=== PATIENT | male | born 1970 | race Caucasian/White ===

== ENCOUNTER 2024-01-03 07:45 | Inpatient (IN) | payer OTHER, SELFPAY ==
[2024-01-03] VITALS (27 sets, daily range): BP systolic 77–150; BP diastolic 69–106; BMI 29.0
--- NOTE | 2024-01-03 04:15 | ED.GENMED ---
History of Present Illness
General
Chief Complaint: Chest Pain
Source: patient
Exam Limitations: none
Time Seen by Provider: 01/03/24 04:15
Nursing documentation reviewed up to this point in time: agreed with
Travel History
Have you had any contact with someone who has COVID-19?: No
Do you have any symptoms of coronavirus? Fever > 100 degrees, chills, cough, shortness of breath, sore throat, loss of taste or smell, muscle aches, or headache?: No
History of Present Illness
History of Present Illness:
Pleasant 53-year-old male that presents with chest pain. He states that he is been having chest pain for the last 5 days. He reports its intermittent in nature and typically not lasting longer than 5 minutes. Tonight he was sleeping and felt
prolonged chest pain. He states that it lasted about 55 minutes. He also noticed that he was getting clammy so he drove himself to the hospital. Patient reports no shortness of breath during these episodes. Has not been sick. Denies fever,
chills, nausea or vomiting. Patient has hyperlipidemia. He is on a statin. He does smoke cigars on occasion but has had none recently. He does drink alcohol nightly. 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
stress lately. He denies previous cardiac history though he states his dad had triple bypass at age 84. Denies headache. Reports no other symptoms at this time.
Vital signs are stable. Patient not hypoxic
Nursing note reviewed. I agree with nursing documentation up to this point in time.
Home Meds and allergies reviewed.
NUMBER AND COMPLEXITY OF PROBLEMS ADDRESSED AT THE ENCOUNTER
� Chronic conditions affecting care: Hyperlipidemia
� Acute Exacerbation and/or Progression of Chronic Illness: None
� Differential Diagnosis includes: ACS, musculoskeletal
AMOUNT AND/OR COMPLEXITY OF DATA TO BE REVIEWED AND ANALYZED
I performed an independent evaluation of the following and my interpretation is:
EKG: Initial EKG shows sinus tachycardia rate of 102 with elevations in V3 through V4 consistent with anterior infarct. Q waves are present.
Repeat EKG shows ST elevations anteriorly consistent with acute STEMI.
CT:
X-rays:
Ultrasound:
Laboratory Studies: Troponin is 2.270
Other:
Review of other/old records:
Clinical information was obtained by an independent historian:
Prescriptions/Medications Considered but not given:
Further testing considered but not performed:
RISK OF COMPLICATIONS AND/OR MORBIDITY OR MORTALITY OF PATIENT MANAGEMENT
Social determinants of health affecting care: Good Social Support
Discussion with other providers:
Escalation of care including admission/observation vs risk of discharge considered: STEMI alert called after EKG changed.
CRITICAL CARE NOTE:
Critical care statement: A total of 35 minutes of critical care time was provided for this patient. This time is separate from time utilized to perform the aforementioned documented procedures. Aggregate critical care time includes only time
during which I was engaged in work directly related to the patient's care, as described above, whether at the bedside or elsewhere in the Emergency Department.
Total Time (exclusive of procedures):35
Update:
Past History
Past History
ED Past Medical History: Hypercholesterolemia
ED Past Surgical History: None
Social History
Tobacco: Non-smoker
Alcohol: Other (Drinks a few times per week)
Drug: None
Personal:
Living: with family
Review of Systems
Review of Systems
Allergies reviewed?: Yes
All Other Systems: ROS reviewed and negative except as documented in HPI and ROS
Constitutional: Reports no symptoms
EENT: Reports no symptoms
Respiratory: Reports no symptoms
Cardiac: Reports chest pain and palpitations; Denies syncope
ABD/GI: Reports no symptoms
: Reports no symptoms
Musculoskeletal: Reports no symptoms
Skin: Reports no symptoms
Neurological: Reports no symptoms
Endocrine: Reports no symptoms
Hematologic/Lymphatic: Reports no symptoms
Psychiatric: Reports no symptoms
Phy Exam
General Physical Exam
General Presentation: well appearing and no apparent distress
General Skin: warm and dry
General Habitus: normal
General Mental: alert
General Hydration: appears well hydrated
ENT Exam
ENT Exam: EOMI, pharynx normal, neck supple and normocephalic
Eye Exam
Eye Exam: PERRL, cornea clear and conjunctiva normal
Cardiovascular Exam
Cardiovascular Exam: regular rate/rhythm, no edema, no murmur and normal peripheral pulses
Pulmonary Exam
Pulmonary Exam: lungs clear, no respiratory distress, no rales, no crackles, no rhonchi, no stridor, no wheezing and no cough
Gastrointestinal Exam
Gastrointestinal Exam: normal bowel sounds, non tender, soft, no organomegaly, no pulsatile mass and non distended
Neurological Exam
Neurological Exam: alert, oriented x3, no motor deficits and speech normal
Musculoskeletal Exam
Musculoskeletal Exam: full ROM and no edema
Skin Exam
Skin Exam: normal color, warm/dry, no rash and no petechia
Psychiatric Exam
Psychiatric Exam: normal mood/affect
Scores
Heart Score for Chest Pain Patients
STEMI patient?: Yes
Course
Orders/Labs/Results
Orders:
Orders
01/03/24
Electrocardiogram (*1) Stat
Comment: ALREADY DONE
01/03/24 03:52
Electrocardiogram (*1) Urgent
Reason for Study: Chest Pain
Cardiac Monitoring- Treatment ONCE
EKG- Treatment ONCE
IV Insert/Care/Rem.- Treatment PRN
O2 Therapy [RESP] Urgent
Titrate/Wean O2 to maintain O2 sat greater than (%): 90
Special Instructions: Maintain sats >/=90%
Pulse Ox/spot Check [RESP] Urgent
Quantity: 1
Special Instructions: ON ROOM AIR
01/03/24 04:09
Complete Blood Count/With Diff Urgent
Comprehensive Metabolic Panel Urgent
Troponin I Urgent
01/03/24 04:17
Aspirin 325 mg PO NOW STA
01/03/24 05:00
Electrocardiogram (*1) Urgent
Reason for Study: Chest Pain
EKG- Treatment ONCE
01/03/24 05:17
PT/INR [Prothrombin Time] Urgent
01/03/24 05:32
Verapamil Injectable [Isoptin/Verapamil Injection] 5 mg .ROUTE .STK-MED ONE
01/03/24 05:33
Fentanyl Citrate/Pf [Sublimaze] 100 mcg .ROUTE .STK-MED ONE
Heparin 10,000 units .ROUTE .STK-MED ONE
Heparin 1000 Units/500 ml [Heparin] 1,000 units in 500 ml .ROUTE .STK-MED
Heparin Sodium,Porcine/Ns/Pf [Heparin 2000 Units/1000 ml] 2,000 unit in 1,000 ml .ROUTE .STK-MED
Lidocaine HCl/Pf [Xylocaine-Mpf 1% Vial] 100 mg .ROUTE .STK-MED ONE
Midazolam HCl [Versed] 2 mg .ROUTE .STK-MED ONE
Nitroglycerin [Tridil] 1,500 mcg .ROUTE .STK-MED ONE
01/03/24 05:57
Heparin 5,000 units .ROUTE .STK-MED ONE
Ticagrelor [Brilinta] 180 mg .ROUTE .STK-MED ONE
01/03/24 Breakfast
Cholesterol Lowering
At Your Request: Full Participation
Does patient need a safe tray?: No
Cholesterol Lowering: Sodium, 2 Gram
01/03/24 06:21
Adenosine [Adenocard] 6 mg .ROUTE .STK-MED ONE
01/03/24 07:16
Admit Patient As Directed
Co-Sign Provider:
Level of Care: Inpatient admission
Assign to:: IVU
Physician / Group: dca
Diagnosis: STEMI
Reason for Hospitalization: STEMI
Expected length of stay greater than two midnights?: Yes
ELOS- Estimated Length of Stay in days: 3
I certify the patient meets the requirements for IP care: Yes
Code Status As Directed
Resuscitation Status: Full Code
CARDIAC REHAB CONSULT Routine
Co-Sign Provider:
Type of Cardiac Rehab Referral: Outpatient
Diagnosis: STEMI
Date of Diagnosis/Surgery: 01/03/24
Referring Provider: Gage Suazo
Acetaminophen [Tylenol] 650 mg PO Q4HPRN PRN
Activity As Directed
Activity Level: Out of Bed- Chair
Comment: bed/chair rest for 2 hours then out of bed ad caryn
Plant Operator/Shift Supervisor Procedure As Directed
Cardiac Cath Procedure: percutaneous coronary intervention
Intake/ Output As Directed
Frequency: Per unit guidelines
Notify MD As Directed
Notify physician if: immediately for chest pain or bleeding from access site(s)
Radial Artery Hemostasis Method As Directed
Instructions:: 3 mL out at 2 hour posts placement of band
3 mL out at 2 1/2 hours post placement of band
3 mL out at 3 hours post placement of band
Off at 3 1/2 hours post placement of band
If any oozing or hemotoma occurs:: re-inflate band and call provider
Site Checks As Directed
Check access site for bleeding/hematoma: Yes
Comment: on arrival, Q15min x4, Q30min x2, Q1 hr x2, Q2 hr x2, Q4 hr or per
protocol
Vascular Checks As Directed
Location: distal to access site - pulse check
Frequency: Other
Comment: on arrival, Q15min x4, Q30min x2, Q1 hr x2, Q2 hr x2, Q4 hr or per protocol
Vital Signs As Directed
Frequency: Other
Additional Instructions:: on arrival, Q15min x4, Q30min x2, Q1 hr x2, Q2 hr x2, then Q4 hr or per unit
protocol
01/03/24 07:17
DX Deep Vein Thrombosis Video Routine
01/03/24 07:30
0.9% Sodium Chloride 1000 ml [Nss] 1,000 ml IV PER PROTOCOL
Infusion rate in mL/kg/hr:: 1.5
Infusion rate in mL/hr:: 130
Duration of infusion (hours):: 5
01/03/24 08:00
Flush (0.9% Sodium Chloride) [Flush (Nss)] See Dose Instructions IV PER PROTOCOL
Metoprolol Xl [Toprol Xl] 25 mg PO DAILY
01/03/24 12:41
Troponin I Q6H
01/03/24 17:54
Troponin I Q6H
01/03/24 18:00
Atorvastatin [Lipitor] 80 mg PO QPM
Enoxaparin Sodium [Lovenox] 40 mg SC QPM
01/03/24 20:00
Ticagrelor [Brilinta] 90 mg PO BID
01/04/24 04:33
Basic Metabolic Panel IN AM
Cardiovascular Evaluation IN AM
Complete Blood Count/No Diff IN AM
Glycohemoglobin (HgbA1c) Routine
Troponin I Q6H
01/04/24 06:00
Electrocardiogram (*1) IN AM
Reason for Study: Other
Other Reason for Exam: s/p intervention
Comment: dca
01/04/24 08:00
Aspirin Chewable [Low Strength Aspirin] 81 mg PO DAILY
01/05/24 06:00
Basic Metabolic Panel IN AM
Complete Blood Count/No Diff IN AM
01/06/24 06:00
Basic Metabolic Panel IN AM
Complete Blood Count/No Diff IN AM
Abnormal Lab Results
01/03/24 01/03/24 01/03/24
04:09 06:02 06:15
MCH 31.2 H pg
(27.0-31.0)
Absolute Lymphs (auto) 3.7 H 10^3/uL
(1.2-3.4)
Absolute Monos (auto) 0.7 H 10^3/uL
(0.1-0.6)
Glucose 137 H mg/dl
(70-99)
AST 63 H U/L
(17-59)
Troponin I 2.270 H* ng/ml
POC ACT Low Range 253 H Seconds > 397 H Seconds
(116-155) (116-155)
01/03/24
06:50
MCH
Absolute Lymphs (auto)
Absolute Monos (auto)
Glucose
AST
Troponin I
POC ACT Low Range 248 H Seconds
(116-155)
01/03/24 04:09
01/03/24 04:09
Vital Signs
Initial and Last Documented VS:
Initial Vital Signs
Temp Pulse Resp BP Pulse Ox
98.4 F 104 18 150/106 97
01/03/24 03:55 01/03/24 03:55 01/03/24 03:55 01/03/24 03:55 01/03/24 03:55
Last Documented Vital Signs
Temp Pulse Resp BP Pulse Ox
99.6 F 95 16 87/67 96
01/04/24 19:37 01/04/24 20:11 01/04/24 19:37 01/04/24 20:11 01/04/24 19:37
*Critical Care Note
Total Time (30-74mins, 75-104mins- exclusive of procedures): 30 (Critical care statement: A total of 30 minutes of critical care time was provided for this patient. This time is separate from time utilized to perform the aforementioned documented
procedures. Aggregate critical care time includes only time during which I was engaged in work directl)
ED Attending Note
-
Portions of this chart may have been created with voice recognition software.� Occasional wrong word or��sound alike� substitutions may have occurred due to the inherent limitations of voice recognition software.
Discharge Plan
Departure
Patient Disposition: SENIOR MATERIALS ANALYST
Date of Disposition: 01/03/24
Time of Disposition: 05:04
Admit to: [facility]
Presentation/result/management discussed w/ accepting MD/DO: Dr Suazo
Condition: Good
Discharge Problem:
ST elevation (STEMI) myocardial infarction
Interventions
Interventions:
*Risk Screen - Suicide Last Done: 01/03/24 03:55
*General Assessment Last Done: 01/03/24 03:55
*Neglect/Abuse Screening Last Done: 01/03/24 03:55
ED- Fall Risk Assessment Last Done: 01/03/24 03:55
*ED COVID-19 Vaccine History Last Done: 01/03/24 03:55
*Nursing Disposition Last Done: 01/03/24 06:00
ED- Cardiac Assessment Last Done: 01/03/24 04:23
Discharge Date and Time
Discharge Date/Time: 01/03/24 06:01
[2024-01-03 04:18] LABS: % Basophils 0.5 % (0-2); % Eosinophils 3.4 % (0-6); % Immature Granulocytes 0.3 % (0-0.5); % Monocytes 6.8 % (1.7-9.3); Absolute Basophils 0.1 10^3/uL (0-0.2); Absolute Eosinophils 0.4 10^3/uL (0-0.7); Absolute Lymphocytes 3.7 10^3/uL (1.2-3.4); Absolute Monocytes 0.7 10^3/uL (0.1-0.6); Absolute Neutrophils 5.5 10^3/uL (1.4-6.5); Hematocrit 45.3 % (39.0-52.0); Hemoglobin 16.3 g/dL (13.0-18.0); Mean Corpuscular Hgb 31.2 pg (27.0-31.0); Mean Corpuscular Volume 86.6 fL (80.0-94.0); Mean Platelet Volume 8.7 fL (7.4-10.4); Nucleated Red Blood Cells % 0 % (-); Platelet Count 211 10^3/uL (130-400); Red Blood Cell Count 5.23 10^6/uL (4.70-6.10); Red Cell Dist. Width 12.1 % (11.5-14.5); White Blood Cell Count 10.4 10^3/uL (4.8-10.8)
[2024-01-03] MEDS: ASPIRIN 325 MG PO (04:26)
[2024-01-03 04:34] LABS: ALT (SGPT) 42 U/L (0-50); AST (SGOT) 63 U/L (17-59); Albumin 4.6 g/dl (3.5-5.0); Alkaline Phosphatase 73 U/L (38-126); Blood Urea Nitrogen 15 mg/dl (9-20); Calcium 9.3 mg/dl (8.4-10.2); Carbon Dioxide 23 mmol/L (22-30); Chloride 106 mmol/L (98-107); Glucose 137 mg/dl (70-99); Potassium 3.8 mmol/L (3.5-5.1); Sodium 138 mmol/L (135-145); Total Bilirubin 0.8 mg/dl (0.2-1.3); Total Protein 7.3 g/dl (6.3-8.2); eGFR > 60.00
[2024-01-03 05:44] LABS: INR 0.91; PT 12.3 Sec (11.4-14.6)
[2024-01-03 05:59] LABS: ACT-LR - POC 144 Seconds (116-155)
[2024-01-03 06:09] LABS: ACT-LR - POC 253 Seconds (116-155)
[2024-01-03 06:54] LABS: ACT-LR - POC 248 Seconds (116-155)
[2024-01-03] MEDS: TOPROL XL 25 MG PO (07:31)
[2024-01-03] MEDS: TYLENOL 650 MG PO (07:31)
[2024-01-03 08:01] LABS: ACT-LR - POC > 397 Seconds (116-155)
--- NOTE | 2024-01-03 08:41 | ITS.CL.CATH ---
Bus Driver Supervisor - Catheterization
Cardiac Catheterization
Procedure Report:
LEFT HEART CATH AND CORONARY INTERVENTION
Date of Procedure: January 03, 2024
Referring: [facility] Emergency Department
PROCEDURES:
1. Left heart catheterization with coronary and single-plane left ventriculography
2. Successful stenting of the proximal to mid LAD with a 3.5 x 38 mm Xience stent that was postdilated with a 3.5 mm noncompliant balloon in the mid to distal portion and a 4.0 x 15 mm noncompliant balloon proximally.
3. Intravascular ultrasound: Intravascular ultrasound was performed prior to post dilation of the stent
INDICATION: This is a 53-year-old gentleman with no prior cardiovascular history who presented to [facility] with a 5-day history of waxing and waning substernal chest pressure. Symptoms would typically resolve within 5 to 10 minutes. His
initial electrocardiogram patient had 355 was notable for anteroseptal Q waves with no gross ST elevation and he was chest pain-free. He was started on medical therapy but developed recurring chest tightness and repeat electrocardiogram was now
notable for marked anterior ST segment elevation in leads V1 through V4 at which time a STEMI alert was activated by the emergency department at approximately 5 AM.
ACCESS: Right radial artery, 6 Egyptian sheath
HEMODYNAMICS (mmHg):
AO (s/d, m) : 116/87, 102
LV (s/d) : 120/17
LVEDP : 33
CORONARY FINDINGS
Dominance: Right
LEFT MAIN: Normal
LEFT ANTERIOR DESCENDING: The LAD arises normally from the left main and runs in the anterior interventricular groove. There is an eccentric high-grade proximal LAD stenosis with angiographic appearance of a ruptured plaque in the proximal LAD.
There is a moderate caliber diagonal branch that arises just beyond the ruptured plaque in the proximal LAD. The mid LAD beyond the diagonal branch has tandem 30-40% stenosis. The mid to distal LAD has minor irregularities.
RAMUS: Small caliber widely patent vessel
CIRCUMFLEX: The circumflex is a medium caliber vessel supplying 2 sizable obtuse marginal branches with minor irregularities.
RIGHT CORONARY: The right coronary artery is a large-caliber dominant vessel with tandem proximal 30-40% stenoses. Luminal irregularities are noted throughout the mid to distal RCA. The PDA is large and widely patent. The posterolateral branch is
a moderate caliber vessel is widely patent
VENTRICULOGRAPHY: Left ventriculography is performed in CALABRESE projection. The digital single-plane left ventricular ejection fraction is visually estimated at 30-35% with extensive anterolateral and distal anterior/apical hypokinesis
ANGIOPLASTY PROCEDURE DETAIL: Upon review of the diagnostic catheterization the decision was made to proceed with percutaneous revascularization of the high-grade proximal LAD stenosis. The patient received heparin and a 180 mg loading dose of
ticagrelor in the emergency department. The ACT was followed throughout the procedure and maintained within therapeutic limits. The origin of the left main was cannulated with a 6 Egyptian EBU 3.75 guiding catheter and a BMW guidewire across the
high-grade proximal LAD stenosis and was advanced to the distal vessel. Direct stenting was performed with placement of a 3.5 x 38 mm Xience stent that was implanted at nominal pressures. The patient developed transient no reflow following stent
deployment. Intracoronary adenosine was repeatedly administered with gradual resolution in the no reflow. Intravascular ultrasound was then performed with the Sysomos IVUS catheter and the decision was made to post dilate the mid to distal
portion of the stent with a 3.5 mm NC balloon that was inflated between 18-20 atmospheres. The proximal to mid portion of the stent was post dilated with a 4.0 mm NC balloon. Transient no reflow developed and responded again to intracoronary
adenosine
RADIATION SUMMARY: Fluoro Time (min): 12.6, Dose (mGy): 1311, DAP (Gy.cm2) : 109.3
CONCLUSIONS
1. Acute anterior wall myocardial infarction with waxing and waning chest pain which became persistent and associated with marked anterior ST segment elevation. Angiography was notable for a high-grade proximal LAD stenosis that was successfully
stented with a 3.5 x 38 mm Xience stent that was postdilated using ultrasound guidance with a 3.5 mm noncompliant balloon in the mid and distal portion of the stent and a 4.0 mm noncompliant balloon in the proximal to midportion of the stent
2. Moderate left ventricular systolic dysfunction with an estimated ejection fraction of 30-35%. Extensive anterolateral and distal anterior/apical hypokinesis
RECOMMENDATIONS
1. Uninterrupted dual antiplatelet therapy for 12 months
2. High intensity statin therapy
3. Guideline directed medical therapy for LV dysfunction
4. Check echocardiogram
5. Serial troponin and ECG.
6. Further management decisions to be made based on hospital course.
Copy to: Dr. Gage Suazo
[2024-01-03] MEDS: NSS 1000 IV (08:47)
--- NOTE | 2024-01-03 09:04 | HPS.HSE ---
Family Physician
-
Family Physician: JOVANI Adame
Chief Complaint
-
Anterior STEMI
History of Present Illness
53 yo WM h/o mixed hyperlipidemia on atorvastatin 20mg, who has been having intermittent chest pain for the last 5 days. At 3am he was awoken with the chest pain which continued to progress with associated diaphoresis and he drove himself to the ""hospital. EKG with anteroseptal Q waves and anterior ST elevations. STEMI alert activated, He was given ASA, Heparin, Brilinta and brought urgently to the cath lab manager.
Medical History
Past Medical History
Past Medical History: Reports Hypercholesterolemia
Past Surgical History: Reports None
Social History
Tobacco: Smoker (occasional cigars on weekends)
Alcohol: Occasional (weekends)
Drug: None
Personal:
Living: With Family
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)
Family History
Family History: CAD (Father CABG @84, HLD, Mother hemorrhagic CVA @77)
Allergies / Home Medications
Allergies reflects when Allergies were last updated in [employer].
Home Medications with original date entered in [employer]
Allergy/Medication List:
Allergies
Allergy/AdvReac Type Severity Reaction Status Date / Time
No Known Allergies Allergy Unverified 01/03/24 03:55
Medication Instructions Recorded Confirmed Type
atorvastatin 20 mg tablet 20 mg PO DAILY 01/03/24 01/03/24 History
Review of Systems
-
A 12 point ROS was completed and negative except as noted: Yes
Cardiac: Reports Chest Pain
Physical Exam
Vital Signs
Vital Signs
Temp Pulse Resp BP Pulse Ox
98 F 88 20 115/103 97
01/03/24 07:35 01/03/24 08:45 01/03/24 07:35 01/03/24 08:30 01/03/24 08:45
Physical Exam
General: Pain (deferred as prepped and draped on cath lab manager table)
Laboratory Results
-
01/03/24 04:09
01/03/24 04:09
Laboratory Results
PT 12.3 Sec (11.4-14.6) 01/03/24 05:17
INR 0.91 01/03/24 05:17
Total Bilirubin 0.8 mg/dl (0.2-1.3) 01/03/24 04:09
AST 63 U/L (17-59) H 01/03/24 04:09
ALT 42 U/L (0-50) 01/03/24 04:09
Alkaline Phosphatase 73 U/L (38-126) 01/03/24 04:09
Troponin I 2.270 ng/ml H* 01/03/24 04:09
Data Reviewed
-
Medical Tests (Nuc Med, Echo, EKG etc): Report Reviewed by me
Impression/Plan
-
PCP: JOVANI Adame
IMPRESSION:
late presentation anterior STEMI first troponin 2.27
Mixed Hyperlipidemia
Impaired fasting glucose
Vitamin B deficiency
Smoker - Cigars
PLAN:
Admit IVU post cath, PCI LAD
Rad band per protocol
serial troponin to peak
Echo today
DAPT ASA/Brilinta (CM to eval cost)
Will initiate BB, add ACEi/ARB after Echo, will trend bp
Check CVE, last LDL 12/14 97, increase atorvastatin 80mg daily
Elevated blood glucose - Check A1c, was 5.5 1 yr ago
Cardiac rehab c/s
f/u DCA at d/c
continue to monitor on tele 48 hour
--- NOTE | 2024-01-03 10:51 | CARDSERVLU ---
Echocardiogram with Lumason completed after protocol screening completed. Allergies verified.
Patent IV site: ___left FA__
IV site flushed with 0.9% NaCl pre and post administration.
Diluted bolus method utilized to enhance visualization of ventricular burks.
Total volume given: ___5.0_ mL
Patient tolerated all procedures well without complications.
--- NOTE | 2024-01-03 12:39 | CM ---
spoke to pt in room, he is prev indep, lives with his in a 2 story home with no steps to enter. he denies any dc planning needs or dme's. plan is for dc to home when medically stable.
--- NOTE | 2024-01-03 15:09 | CM ---
dorothea cardona at [facility]- his copay is $25/month, i put the $5 copay card in his red dc folder. they have it in stock
--- NOTE | 2024-01-03 16:23 | W.PN.UPDATE ---
Update Note
Progress Note Update
PCP: Steff Garcia
Research Physicist: None prior to admission
Impression:
Late presentation anterior STEMI
CAD
s/p PCI to LAD 01/03/2024
HLD
Impaired fasting glucose
Vitamin B deficiency
Smoker - Cigars
Echo 01/03/2024: Study completed, report pending
Plan:
-Presented with chest pain that had been progressively worsening for the past 5 days.
-Initial EKG with anteroseptal Q waves and anterior ST elevations.
-Given heparin and loaded with aspirin and Brilinta in ER.
-Underwent PCI of LAD. Official report pending. Seen this afternoon and feeling well. No chest pain. Resting without complaints.
-Continue DAPT with aspirin and Brilinta.
-Troponin up to 115.0. Continue to trend to peak.
-Echo completed, report pending.
-Continue medical therapy with Toprol for now. Consider addition of COSTA/ARB as BP allows.
-Continue atorvastatin 80mg daily. Dose increased this admission.
-Check CVE, A1c in AM.
-Cardiac rehab consult.
-Follow on telemetry.
HPI:53 yo WM h/o mixed hyperlipidemia on atorvastatin 20mg, who has been having intermittent chest pain for the last 5 days. At 3am he was awoken with the chest pain which continued to progress with associated diaphoresis and he drove himself to the ""hospital. EKG with anteroseptal Q waves and anterior ST elevations. STEMI alert activated, He was given ASA, Heparin, Brilinta and brought urgently to the director of cardiac cath lab.
[2024-01-03] MEDS: LOVENOX 40 MG SC (18:02)
[2024-01-03] MEDS: LIPITOR 80 MG PO (18:02)
--- NOTE | 2024-01-03 18:33 | PTCARENOTE ---
Pt with STEMI received @0700 post cardiac cath and stent placed via right radial artery. Radial band removed per protocol, no bleeding or hematoma noted. Pt reported 5/10 vague chest discomfort and headache post procedure and was given tylenol. Pt
reported that his discomfort has improved throughout the day. Telemetry shows sinus rhythm with some PVC's, rare triplets and couplets. Troponin level trending up, at 115 now, aware. ECHO done at bedside. Pt in some denial that he has had
an ME, reassurance and information given.
[2024-01-03] MEDS: BRILINTA 90 MG PO (19:49)
[2024-01-04] VITALS (8 sets, daily range): BP systolic 85–97; BP diastolic 64–83
[2024-01-04 05:25] LABS: Hematocrit 40.8 % (39.0-52.0); Hemoglobin 14.5 g/dL (13.0-18.0); Mean Corp Hgb Conc. 35.5 g/dL (33.0-37.0); Mean Corpuscular Hgb 31.2 pg (27.0-31.0); Mean Corpuscular Volume 87.7 fL (80.0-94.0); Mean Platelet Volume 9.3 fL (7.4-10.4); Platelet Count 198 10^3/uL (130-400); Red Blood Cell Count 4.65 10^6/uL (4.70-6.10); Red Cell Dist. Width 12.3 % (11.5-14.5)
[2024-01-04 05:42] LABS: Blood Urea Nitrogen 11 mg/dl (9-20); Calcium 8.6 mg/dl (8.4-10.2); Carbon Dioxide 23 mmol/L (22-30); Chloride 104 mmol/L (98-107); Estimated Creatinine Clearance 90 ml/min; Glucose 97 mg/dl (70-99); HDL Cholesterol 37 mg/dl; LDL Cholesterol, Calculated 65 mg/dl; Potassium 3.9 mmol/L (3.5-5.1); Sodium 134 mmol/L (135-145); Total Cholesterol 137 mg/dl (50-199); Triglyceride 178 mg/dl (10-149); Very Low Density Lipoprotein 35 mg/dl (0-30); eGFR > 60.00
[2024-01-04] MEDS: TOPROL XL 25 MG PO (08:15)
[2024-01-04] MEDS: LOW STRENGTH ASPIRIN 81 MG PO (08:15)
[2024-01-04] MEDS: BRILINTA 90 MG PO ×2 (08:17→20:10)
--- NOTE | 2024-01-04 09:03 | PTCARENOTE ---
Assumed care of pt from night RN. Pt received awake and alert, Ox3. VSS, CM shows NSR 80's with POX 96% on RA. Right radial site remains CDI with good CMS throughout extremity. He denies any pain or discomfort. Ambulating in halls frequently.
[2024-01-04 09:31] LABS: Glycohemoglobin (HgbA1c) 5.5 % (4.0-5.6)
--- NOTE | 2024-01-04 11:01 | W.PN.CARDCBS ---
Addendum entered and electronically signed by Emory Rodriguez MD 01/04/24 12:37:
I saw and examined the patient.
The Abrasives Sales Representative's note was reviewed and I agree with the note.
Comment: Briefly, 53-year-old man with past medical history of hyperlipidemia who presented with anterior STEMI and underwent drug-eluting stent to the LAD on 01/03/2024
It sounds like he had stuttering chest pain throughout the week and this maybe a late presentation
On transthoracic echocardiogram LV function was severely reduced with EF 25% with LAD territory akinesis
Troponin peaked at 115
No evidence of decompensated heart failure based on history or physical exam
Telemetry reviewed and brief episode of nonsustained VT was seen
Unfortunately blood pressure is marginal and therefore he is unlikely to tolerate much in the way of guideline directed medical therapy�will continue low-dose metoprolol and attempt to add low-dose losartan with hold parameters
Explained the importance of dual antiplatelet therapy x 1 year
Increase atorvastatin dose
Cardiac rehab referral
Original Note:
Today's Communication / Plan
-
Continue DAPT
Monitor on telemetry
Continue toprol
Attempt to add low dose losartan
Impression / Plan
-
PCP: Steff Garcia
Mushroom Cultivator: None prior to admission
Impression:
Late presentation anterior STEMI
CAD
s/p PCI to LAD 01/03/2024
Ischemic cardiomyopathy, EF 25%
HLD
Impaired fasting glucose
Vitamin B deficiency
Smoker - Cigars
Echo 01/03/2024: EF 25%, mid anteroseptal, mid septal, mid anterior, mid lateral, and apical akinesis, stage I diastolic dysfunction
Plan:
-Presented with chest pain that had been progressively worsening for the past 5 days.
-Initial EKG with anteroseptal Q waves and anterior ST elevations.
-Underwent PCI of LAD 01/03/2024. Seen this AM and doing well. No further chest pain. Ambulating around the unit without difficulty.
-Continue DAPT with aspirin and Brilinta.
-Troponin peaked at 115.0, trending down thereafter.
-Echo with EF 25%. Will continue Toprol 25mg daily for now and will attempt to start low dose losartan with hold parameters.
-Uptitration of medical therapy limited by hypotension, however patient is asymptomatic.
-Continue atorvastatin 80mg daily. Dose increased this admission. LDL 65
-Hgb A1c 5.5%
-Eventual cardiac rehab
HPI:53 yo WM h/o mixed hyperlipidemia on atorvastatin 20mg, who has been having intermittent chest pain for the last 5 days. At 3am he was awoken with the chest pain which continued to progress with associated diaphoresis and he drove himself to the ""hospital. EKG with anteroseptal Q waves and anterior ST elevations. STEMI alert activated, He was given ASA, Heparin, Brilinta and brought urgently to the medical laboratory assistant.
Progress Note - Mushroom Cultivator
Subjective
Date of Service: January 04, 2024
No complaints. Feeling well with no chest pain or dizziness.
Objective
Labs:
01/04/24 04:33
01/04/24 04:33
Labs
Hgb 14.5 g/dL (13.0-18.0) 01/04/24 04:33
Hct 40.8 % (39.0-52.0) 01/04/24 04:33
Plt Count 198 10^3/uL (130-400) 01/04/24 04:33
PT 12.3 Sec (11.4-14.6) 01/03/24 05:17
INR 0.91 01/03/24 05:17
Sodium 134 mmol/L (135-145) L 01/04/24 04:33
Potassium 3.9 mmol/L (3.5-5.1) 01/04/24 04:33
BUN 11 mg/dl (9-20) 01/04/24 04:33
Creatinine 0.9 mg/dL (0.7-1.3) 01/04/24 04:33
Glucose 97 mg/dl (70-99) 01/04/24 04:33
Troponins
01/03/24 01/03/24 01/03/24
04:09 12:41 17:54
Troponin I 2.270 H* 115.000 H* 109.000 H*
01/04/24
04:33
Troponin I 65.000 H*
Vital Signs and I&O:
Vital Signs
Temp Pulse Resp BP Pulse Ox
98.1 F 90 16 96/76 97
01/04/24 07:25 01/04/24 07:30 01/04/24 07:25 01/04/24 07:25 01/04/24 08:57
Vital Signs
Temp Pulse Resp BP Pulse Ox
98.1 F 90 16 96/76 97
01/04/24 07:25 01/04/24 07:30 01/04/24 07:25 01/04/24 07:25 01/04/24 08:57
Intake & Output
01/02/24 01/03/24 01/04/24 01/05/24
06:59 06:59 06:59 06:59
Intake Total 770 / 770
Balance 770 / 770
Physical Exam
Physical Exam
GEN: No distress, awake, alert, oriented x3
HEENT: supple, anicteric, mmm
LUNGS: CTA b/l, no wheezes/rales
CV: Reg, S1/S2, no murmur
EXT: No clubbing, cyanosis, or edema
NEURO: Gross non-focal
SKIN: Warm, dry, no rash
[2024-01-04] MEDS: LOVENOX 40 MG SC (17:26)
[2024-01-04] MEDS: LIPITOR 80 MG PO (17:26)
[2024-01-05] VITALS (7 sets, daily range): BP systolic 81–104; BP diastolic 60–78
[2024-01-05 04:27] LABS: Hematocrit 40.6 % (39.0-52.0); Mean Corp Hgb Conc. 34.5 g/dL (33.0-37.0); Mean Corpuscular Hgb 30.8 pg (27.0-31.0); Mean Corpuscular Volume 89.4 fL (80.0-94.0); Mean Platelet Volume 9.3 fL (7.4-10.4); Platelet Count 188 10^3/uL (130-400); Red Blood Cell Count 4.54 10^6/uL (4.70-6.10); Red Cell Dist. Width 12.3 % (11.5-14.5); White Blood Cell Count 8.1 10^3/uL (4.8-10.8)
[2024-01-05 04:53] LABS: Blood Urea Nitrogen 18 mg/dl (9-20); Calcium 8.9 mg/dl (8.4-10.2); Carbon Dioxide 26 mmol/L (22-30); Chloride 104 mmol/L (98-107); Estimated Creatinine Clearance 81 ml/min; Glucose 103 mg/dl (70-99); Potassium 4.1 mmol/L (3.5-5.1); Sodium 138 mmol/L (135-145); eGFR > 60.00
--- NOTE | 2024-01-05 05:05 | PTCARENOTE ---
No complaints chest pain/discomfort, VSS (SBP 80's-90's, pt. asymptomatic), NSR on the monitor. Right radial cath site BRANDON, no hematoma. Pt. sleeping most of shift.
[2024-01-05] MEDS: BRILINTA 90 MG PO ×2 (08:39→20:10)
[2024-01-05] MEDS: LOW STRENGTH ASPIRIN 81 MG PO (08:39)
--- NOTE | 2024-01-05 10:25 | PTCARENOTE ---
Assumed care of pt from night RN. Pt received awake and alert, Ox3. VSS, CM shows NSR 80-90's, POX 96% on RA. Right wrist site COMPLIANCE REVIEW OFFICER, good CMS noted throughout limb. AM B/P 87/63, BB and ARB held till seen by cards. Pt offers no c/o pain or
discomfort.
[2024-01-05] MEDS: TOPROL XL PO ×2 (11:31→22:38)
[2024-01-05] MEDS: COZAAR 12.5 MG PO (11:32)
[2024-01-05] MEDS: TOPROL XL 12.5 MG PO (11:33)
--- NOTE | 2024-01-05 14:04 | W.PN.CARDCBS ---
Today's Communication / Plan
-
Continue current cardiac meds
Observe on telemetry overnight
Tentative discharge 01/05
Impression / Plan
-
PCP: Steff Garcia
Foreign Policy Officer: None prior to admission
Impression:
Late presentation anterior STEMI
CAD
s/p PCI to LAD 01/03/2024
Ischemic cardiomyopathy, EF 25%
HLD
Impaired fasting glucose
Vitamin B deficiency
Smoker - Cigars
Echo 01/03/2024: EF 25%, mid anteroseptal, mid septal, mid anterior, mid lateral, and apical akinesis, stage I diastolic dysfunction
Plan:
-Presented after several days of stuttering chest pain
-Initial EKG with anteroseptal Q waves and anterior ST elevations.
-Underwent PCI of LAD 01/03/2024
-Troponin peaked at 115.0, trending down thereafter
-Echo with EF 25%
-Reports that he is asymptomatic and has been ambulating the halls
-No obvious signs of decompensated HF, we reviewed CHF warning signs
-Tele unremarkable
-Continue DAPT with aspirin and Brilinta
-Continue atorvastatin 80mg daily. Dose increased this admission. LDL 65.
-BP is marginal, but will attempt low dose BB and ARB: Toprol 12.5 mg BID and losartan 12.5mg BID
-Eventual cardiac rehab
HPI:53 yo WM h/o mixed hyperlipidemia on atorvastatin 20mg, who has been having intermittent chest pain for the last 5 days. At 3am he was awoken with the chest pain which continued to progress with associated diaphoresis and he drove himself to the ""hospital. EKG with anteroseptal Q waves and anterior ST elevations. STEMI alert activated, He was given ASA, Heparin, Brilinta and brought urgently to the chemical laboratory assistant.
Progress Note - Foreign Policy Officer
Subjective
Date of Service: January 05, 2024
NAOE. Ambulating around the unit. No CP, SHAY, orthopnea, peripheral edema, lightheadedness/dizziness.
Objective
Labs:
01/05/24 04:15
01/05/24 04:15
Labs
Hgb 14.0 g/dL (13.0-18.0) 01/05/24 04:15
Hct 40.6 % (39.0-52.0) 01/05/24 04:15
Plt Count 188 10^3/uL (130-400) 01/05/24 04:15
PT 12.3 Sec (11.4-14.6) 01/03/24 05:17
INR 0.91 01/03/24 05:17
Sodium 138 mmol/L (135-145) 01/05/24 04:15
Potassium 4.1 mmol/L (3.5-5.1) 01/05/24 04:15
BUN 18 mg/dl (9-20) 01/05/24 04:15
Creatinine 1.0 mg/dL (0.7-1.3) 01/05/24 04:15
Glucose 103 mg/dl (70-99) H 01/05/24 04:15
Troponins
01/03/24 01/03/24 01/03/24
04:09 12:41 17:54
Troponin I 2.270 H* 115.000 H* 109.000 H*
01/04/24
04:33
Troponin I 65.000 H*
Vital Signs and I&O:
Vital Signs
Temp Pulse Resp BP Pulse Ox
98.8 F 92 20 104/78 99
01/05/24 11:33 01/05/24 12:00 01/05/24 11:33 01/05/24 11:35 01/05/24 11:33
Vital Signs
Temp Pulse Resp BP Pulse Ox
98.8 F 92 20 104/78 99
01/05/24 11:33 01/05/24 12:00 01/05/24 11:33 01/05/24 11:35 01/05/24 11:33
Intake & Output
01/03/24 01/04/24 01/05/24 01/06/24
06:59 06:59 06:59 06:59
Intake Total 770 / 770
Balance 770 / 770
Physical Exam
Physical Exam
Gen: NAD, AAOx3
HEENT: NC/AT, sclera anicteric
Neck: No JVD
CV: RRR, NL s1/s2, no murmurs, +gallop
Lungs: CTAB
Abd: S/ND
Ext: No LE edema
Skin: Warm, dry
Neuro: Non-focal
[2024-01-05] MEDS: LIPITOR 80 MG PO (17:46)
[2024-01-05] MEDS: LOVENOX SC (17:47)
[2024-01-05] MEDS: COZAAR PO (21:54)
--- NOTE | 2024-01-06 | PTCARENOTE ---
2000 doses of Toprol and Cozaar held for SBP 80's-low 90's per Ed PAMELA Gonzalez. Pt. asymptomatic. NSR 70's-80's on the monitor, pt.denies any chest pain/discomfort. Ambulating without difficulty.
[2024-01-06 03:43] VITALS: BP 87/69
[2024-01-06 03:54] VITALS: BMI 28.0
[2024-01-06 04:06] LABS: Hematocrit 40.9 % (39.0-52.0); Hemoglobin 14.1 g/dL (13.0-18.0); Mean Corp Hgb Conc. 34.5 g/dL (33.0-37.0); Mean Corpuscular Hgb 31.1 pg (27.0-31.0); Mean Corpuscular Volume 90.3 fL (80.0-94.0); Mean Platelet Volume 9.3 fL (7.4-10.4); Platelet Count 209 10^3/uL (130-400); Red Blood Cell Count 4.53 10^6/uL (4.70-6.10); White Blood Cell Count 9.1 10^3/uL (4.8-10.8)
[2024-01-06 04:30] LABS: Blood Urea Nitrogen 22 mg/dl (9-20); Calcium 8.9 mg/dl (8.4-10.2); Carbon Dioxide 28 mmol/L (22-30); Chloride 103 mmol/L (98-107); Estimated Creatinine Clearance 73 ml/min; Glucose 98 mg/dl (70-99); Potassium 4.1 mmol/L (3.5-5.1); Sodium 137 mmol/L (135-145); eGFR > 60.00
[2024-01-06 07:10] VITALS: BP 78/65
[2024-01-06 07:11] VITALS: BP 92/75
--- NOTE | 2024-01-06 07:35 | W.PN.CARDCBS ---
Addendum entered and electronically signed by Lois Traylor PA-C 01/06/24 14:04:
[id number]
Addendum entered and electronically signed by Markus Frost MD 01/06/24 12:25:
I saw and examined the patient.
The INVESTMENT BROKER or PA's note was reviewed and I agree with the note.
Comment: General: Well developed, well nourished in NAD.
Neck: Supple, no JVD, HJR, carotids +2 B/L, no bruits bilaterally.
Heart: Non displaced PMI, RRR, no murmurs, No S3, S4, no rubs.
Lungs: Clear to auscultation bilaterally, no wheeze, rhonchi, rubs bilaterally,
normal expiratory phase.
Extremities: No clubbing, cyanosis or edema bilaterally.
Neuro: Grossly nonfocal, awake, alert and oriented x3.
Stable cardiology status for discharge. No signs or symptoms of CHF. Discussed precautions and medication compliance on discharge. Follow-up as been arranged. He agrees to cardiac rehab.
Original Note:
Today's Communication / Plan
-
Continue DAPT with aspirin and Brilinta
Low dose toprol and losartan as tolerated
OK for discharge
Follow up arranged
Eventual cardiac rehab
Impression / Plan
-
PCP: Steff Garcia
Plater Production: None prior to admission
Impression:
Late presentation anterior STEMI
CAD
s/p PCI to LAD 01/03/2024
Ischemic cardiomyopathy, EF 25%
HLD
Impaired fasting glucose
Vitamin B deficiency
Smoker - Cigars
Echo 01/03/2024: EF 25%, mid anteroseptal, mid septal, mid anterior, mid lateral, and apical akinesis, stage I diastolic dysfunction
Plan:
-Presented with chest pain that had been progressively worsening for approx 5 days.
-Initial EKG with anteroseptal Q waves and anterior ST elevations.
-Underwent PCI of LAD 01/03/2024.
-Ambulating around the unit without difficulty. No dizziness or lightheadedness. No further chest pain.
-Continue DAPT with aspirin and Brilinta.
-Troponin peaked at 115.0, trending down thereafter.
-Echo with EF 25%. Will continue Toprol 12.5mg BID and losartan 12.5mg BID as BPs allow.
-Uptitration of medical therapy limited by hypotension, however patient is asymptomatic.
-Continue atorvastatin 80mg daily. Dose increased this admission. LDL 65
-Hgb A1c 5.5%
-Eventual cardiac rehab
HPI:53 yo WM h/o mixed hyperlipidemia on atorvastatin 20mg, who has been having intermittent chest pain for the last 5 days. At 3am he was awoken with the chest pain which continued to progress with associated diaphoresis and he drove himself to the
hospital. EKG with anteroseptal Q waves and anterior ST elevations. STEMI alert activated, He was given ASA, Heparin, Brilinta and brought urgently to the factory laborer.
Progress Note - Plater Production
Subjective
Date of Service: January 06, 2024
Feeling well. No complaints.
Objective
Labs:
01/06/24 03:51
01/06/24 03:51
Labs
Hgb 14.1 g/dL (13.0-18.0) 01/06/24 03:51
Hct 40.9 % (39.0-52.0) 01/06/24 03:51
Plt Count 209 10^3/uL (130-400) 01/06/24 03:51
PT 12.3 Sec (11.4-14.6) 01/03/24 05:17
INR 0.91 01/03/24 05:17
Sodium 137 mmol/L (135-145) 01/06/24 03:51
Potassium 4.1 mmol/L (3.5-5.1) 01/06/24 03:51
BUN 22 mg/dl (9-20) H 01/06/24 03:51
Creatinine 1.1 mg/dL (0.7-1.3) 01/06/24 03:51
Glucose 98 mg/dl (70-99) 01/06/24 03:51
Troponins
01/03/24 01/03/24 01/04/24
12:41 17:54 04:33
Troponin I 115.000 H* 109.000 H* 65.000 H*
Vital Signs and I&O:
Vital Signs
Temp Pulse Resp BP Pulse Ox
98.1 F 77 16 87 97
01/06/24 07:08 01/06/24 07:08 01/06/24 07:08 01/06/24 03:43 01/06/24 07:08
Vital Signs
Temp Pulse Resp BP Pulse Ox
98.1 F 77 16 97
01/06/24 07:08 01/06/24 07:08 01/06/24 07:08 01/06/24 03:43 01/06/24 07:08
Intake & Output
01/04/24 01/05/24 01/06/24 01/07/24
06:59 06:59 06:59 06:59
Intake Total 770 / 770 480 / 480
Balance 770 / 770 480 / 480
Physical Exam
Physical Exam
Gen: NAD, AAOx3
HEENT: NC/AT, sclera anicteric
Neck: No JVD
CV: RRR, NL s1/s2, no murmurs
Lungs: CTAB
Ext: No LE edema
Skin: Warm, dry
Neuro: Non-focal
[2024-01-06] MEDS: BRILINTA 90 MG PO (08:03)
[2024-01-06] MEDS: LOW STRENGTH ASPIRIN 81 MG PO (08:03)
--- NOTE | 2024-01-06 08:08 | PTCARENOTE ---
Patient received from nightshift nurse. Patient is alert and oriented x4, pleasant. Denies pain/discomfort. NSR. HR 70s-80s. Audible heart tones. BP 92/75. Will ask whether to administer blood pressure medications, no parameters listed on order.
Palpable pulses. No edema. PIV maintained. RA. Oxygen saturation 97%. Upon auscultation, lung sounds clear throughout. Abdomen round. Per patient, he had a BM yesterday and plans on having one later this AM. Voids spontaneously. Ambulates in room
and hallway independently. Potential plan for discharge today, awaiting plan of care to be discussed with cardiology.
--- NOTE | 2024-01-06 08:20 | W.DS.TRANS ---
DC Summary - Orthopedically Impaired Teacher
-
Discharge Instructions:
Discharge Diagnosis/Procedures STEMI, Angioplasty with stent to LAD
Diet Low Cholesterol
Driving Restrictions No driving for 24 hours
Other Services Cardiac Rehab
Instructions:
Stand-Alone Forms: DC Instructions- Cath/EP Lab
Changes to Home Medications: Yes
Discharge Medications:
DC Medications w/original date entered in [facility]
aspirin 81 mg chewable tablet (Children's Aspirin) 81 mg PO DAILY #1 tab 01/06/24
atorvastatin 80 mg tablet 80 mg PO QPM #30 tabs 01/06/24
losartan 25 mg tablet 12.5 mg PO BID #60 tabs 01/06/24
metoprolol succinate 25 mg tablet,extended release 24 hr 12.5 mg PO BID #60 tabs 01/06/24
ticagrelor 90 mg tablet (Brilinta) 90 mg PO BID #60 tabs 01/06/24
Home Medication Changes
Aspirin and Brilinta are new
Lipitor dose increased
Losartan and metoprolol are new
Pending Results: No
[2024-01-06] MEDS: TOPROL XL 12.5 MG PO (09:36)
[2024-01-06 09:37] VITALS: BP 93/69
--- NOTE | 2024-01-06 11:52 | CM ---
Pricing on Jardiance through the patient's prescription plan is $40 a month. The patient qualifies for the $10 a month coupon. I placed it in his red discharge folder.
Pricing on Entresto is $40 a month through the patient's prescription plan. The patient qualifies for a $10 a month coupon. I placed it in his red discharge folder.
I reviewed the information with the patient and he is agreeable.
[2024-01-06 12:12] VITALS: BP 99/75
== END 2024-01-06 13:20 | disposition home or self-care (01) | DRG 322 ==
LOC: IVU 07:45
PROVIDERS: Nurse Practitioner Adult Health; ADMITTING PHYSICIAN Internal Medicine Interventional Cardiology; EMERGENCY PHYSICIAN Student in an Organized Health Care Education/Training Program; FAMILY PHYSICIAN Family Medicine
PROC: B2111ZZ Fluoroscopy of Multiple Coronary Arteries using Low Osmolar Contrast (ICD-10-PCS; 2024-01-03)
PROC: 4A023N7 Measurement of Cardiac Sampling and Pressure, Left Heart, Percutaneous Approach (ICD-10-PCS; 2024-01-03)
PROC: 027034Z Dilation of Coronary Artery, One Artery with Drug-eluting Intraluminal Device, Percutaneous Approach (ICD-10-PCS; 2024-01-03)
PROC: B2151ZZ Fluoroscopy of Left Heart using Low Osmolar Contrast (ICD-10-PCS; 2024-01-03)
PROC: B240ZZ3 Ultrasonography of Single Coronary Artery, Intravascular (ICD-10-PCS; 2024-01-03)
DX: I21.09 ST elevation (STEMI) myocardial infarction involving other coronary artery of anterior wall (principal); E78.2 Mixed hyperlipidemia; F17.290 Nicotine dependence, other tobacco product, uncomplicated; F10.90 Alcohol use, unspecified, uncomplicated; R73.01 Impaired fasting glucose; I25.10 Atherosclerotic heart disease of native coronary artery without angina pectoris; E55.9 Vitamin D deficiency, unspecified; I25.5 Ischemic cardiomyopathy; Z82.49 Family history of ischemic heart disease and other diseases of the circulatory system; Z79.82 Long term (current) use of aspirin; Z82.3 Family history of stroke
CPT/HCPCS: 80048; 80053; 80061; 83036; 84484; 85025; 85027; 85347; 85610; 92978; 93005; 93306; 93458; 99291; C1725; C1753; C1769; C1874; C1894; C9606; J0153; Q9950; Q9967

== ENCOUNTER 2024-02-14 15:09 | Outpatient (RCR) | payer OTHER, SELFPAY | END 2024-02-14 23:59 | disposition home or self-care (01) | LOC: CRHB 15:09 | PROVIDERS: ATTENDING PHYSICIAN Internal Medicine Interventional Cardiology; FAMILY PHYSICIAN Family Medicine | DX: I21.01 ST elevation (STEMI) myocardial infarction involving left main coronary artery (principal); I25.10 Atherosclerotic heart disease of native coronary artery without angina pectoris; Z95.5 Presence of coronary angioplasty implant and graft | CPT/HCPCS: 93798 ==

== ENCOUNTER → 2024-03-09 08:04 | Outpatient (REF) | payer OTHER, SELFPAY | LOC: HWRCS 08:04 | PROVIDERS: ATTENDING PHYSICIAN Physician Assistant Medical; FAMILY PHYSICIAN Nurse Practitioner Family | DX: I25.5 Ischemic cardiomyopathy (principal) | CPT/HCPCS: 93306 ==

== ENCOUNTER 2024-03-20 11:30 | Outpatient (RCR) | payer OTHER, SELFPAY | END 2024-03-20 23:59 | disposition home or self-care (01) | LOC: CRHB 11:30 | PROVIDERS: ATTENDING PHYSICIAN Internal Medicine Interventional Cardiology; FAMILY PHYSICIAN Family Medicine | DX: I25.10 Atherosclerotic heart disease of native coronary artery without angina pectoris (principal); Z95.5 Presence of coronary angioplasty implant and graft | CPT/HCPCS: 93797; 93798; G0422; G0423 ==

== ENCOUNTER 2024-04-01 08:18 | Outpatient (RCR) | payer OTHER, SELFPAY ==
[2024-03-30 10:16] LABS: HDL Cholesterol 36 mg/dl; LDL Cholesterol, Calculated 45 mg/dl; Total Cholesterol 95 mg/dl (50-199); Triglyceride 72 mg/dl (10-149); Very Low Density Lipoprotein 14 mg/dl (0-30)
== END 2024-04-01 23:59 | disposition home or self-care (01) ==
LOC: CRHB 08:18
PROVIDERS: ATTENDING PHYSICIAN Internal Medicine Cardiovascular Disease; FAMILY PHYSICIAN Family Medicine
DX: I25.10 Atherosclerotic heart disease of native coronary artery without angina pectoris (principal); Z95.5 Presence of coronary angioplasty implant and graft
CPT/HCPCS: 80061; 93797; 93798

== ENCOUNTER → 2024-09-09 09:09 | Outpatient (REF) | payer OTHER, SELFPAY | LOC: HWRCS 09:09 | PROVIDERS: ATTENDING PHYSICIAN Internal Medicine Interventional Cardiology; FAMILY PHYSICIAN Physician Assistant Medical | DX: I25.5 Ischemic cardiomyopathy (principal); I25.2 Old myocardial infarction | CPT/HCPCS: 93306 ==

== ENCOUNTER 2024-10-07 16:37 | Emergency (ER) | payer OTHER, SELFPAY ==
[2024-10-07 16:40] VITALS: BP 152/90
--- NOTE | 2024-10-07 16:40 | ED.GENMED ---
ED Provider Triage
<Shital Doss PA-C - Last Filed: 10/07/24 16:43>
-
Patient seen by provider in Triage?: Seen in Triage
Attestation: A medical screening examination has been initiated by a qualified medical provider. Based on the assessment performed at this time, it has been determined that an emergent medical condition may exist and the patient has been informed
that further medical evaluation and possible additional diagnostic testing may be needed.
HPI: 54yoM here with palpitations and anxiety starting at 2pm this afternoon. Feels like heart is racing. No CP/SOB. Hx of AR [address] Suazo is his saw cleaner.
GENERAL: Alert , in no apparent distress
EYE: No visual abnormalities.
NECK: Trachea midline
ENT: No visible abnormalities.
LUNGS: No acute respiratory distress
NEUROLOGICAL: Alert and oriented
SKIN: Skin intact. No visible changes.
MUSCULOSKELETAL: Moving extremities normally
PSYCH: Normal and appropriate interaction.
This is a medical evaluation conducted in person to initiate diagnostic evaluation and provide initial therapeutics. Please see further documentation by the treating clinician.
Cardiac labs, magnesium, TSH, and EKG ordered.
History of Present Illness
<Shital Doss PA-C - Last Filed: 10/07/24 16:43>
General
Chief Complaint: Cardiac Symptoms
Time Seen by Provider: 10/07/24 18:39
<Collin Rachel DO - Last Filed: 10/07/24 19:01>
History of Present Illness
History of Present Illness:
TIME OF INITIAL ENCOUNTER:
HPI: Patient presents due to palpitations without chest pain or shortness of breath. This occurred while at work and he was having an argument at that time. He had not been sleeping well recently. He said that he has been more emotional recently.
He suspects there could be an anxiety component. This is not the way he felt when he had a heart attack.
EXAM:
GENERAL: Well appearing in no distress
HEENT: Moist oral mucosa
CARDIOVASCULAR: No murmurs, normal heart rate, regular rhythm, No chest wall tenderness
PULMONARY: No respiratory distress, breath sounds are clear and equal
ABDOMEN: Soft with no peritoneal signs, no tenderness
NEUROLOGIC: Excellent strength all extremities, no coordination deficits
PSYCHIATRIC: Appropriate mental status, normal insight and judgement, he does appear somewhat upset and slightly tearful at times
EXTREMITIES: Nontender, no edema, moves all extremities equally
SKIN: No rash, no lesions
NUMBER AND COMPLEXITY OF PROBLEMS ADDRESSED AT THE ENCOUNTER
� Chronic conditions affecting care: CAD/AR, hyperlipidemia
� Acute Exacerbation and/or Progression of Chronic Illness: This is an acute problem
� Differential Diagnosis includes: Nonspecific palpitations, anxiety, highly doubt ACS, A-fib, SVT
AMOUNT AND/OR COMPLEXITY OF DATA TO BE REVIEWED AND ANALYZED
� I performed an independent evaluation of and my interpretation is:
EKG: Sinus 71, normal axis, poor R wave progression, prior T wave abnormality no longer seen
CT:
X-rays:
Laboratory Studies: Lab work including TSH and troponin unremarkable
Other:
� Review of other/old records: I reviewed old records, the patient was treated as a STEMI in December 2023
� Clinical information was obtained by an independent historian: None needed
� Prescriptions/Medications Considered but not given:
� Further testing considered but not performed:
RISK OF COMPLICATIONS AND/OR MORBIDITY OR MORTALITY OF PATIENT MANAGEMENT
� Social determinants of health affecting care: Lives at home, has stressors at work
� Discussion with other providers:
� Escalation of care including admission/observation vs risk of discharge considered: I placed the patient on the monitor and he remains in a normal sinus rhythm. Suspect anxiety component. There has been no dysrhythmia here.
His EKG is unremarkable and overall improved compared to prior. We also talked about cognitive behavioral therapy and he is willing to look for someone to talk to as well. He denies any SI.
ANY OTHER UPDATES:
Past History
<Shital Doss PA-C - Last Filed: 10/07/24 16:43>
Past History
ED Past Medical History: Hypercholesterolemia
ED Past Surgical History: None
Social History
Tobacco: Non-smoker
Alcohol: Other (Drinks a few times per week)
Drug: None
Personal:
Living: with family
Phy Exam
<Collin Rachel DO - Last Filed: 10/07/24 19:01>
Physical Exam
Physical Exam:
See HPI
Course
<Shital Doss PA-C - Last Filed: 10/07/24 16:43>
Orders/Labs/Results
Orders:
Orders
10/07/24 16:39
Electrocardiogram (*1) Urgent
Reason for Study: Palpitations
EKG- Treatment ONCE
10/07/24 16:42
Electrocardiogram (*1) Urgent
Reason for Study: Palpitations
EKG- Treatment ONCE
10/07/24 16:49
Complete Blood Count/With Diff Urgent
Comprehensive Metabolic Panel Urgent
Magnesium Urgent
TSH Reflex To Free T4 Urgent
Troponin I Urgent
Abnormal Lab Results
24
16:49
MCH 31.2 H pg
(27.0-31.0)
Absolute Neuts (auto) 6.7 H 10^3/uL
(1.4-6.5)
Lymphocytes % 18.7 L %
(20.5-51.1)
ALT 55 H U/L
(0-50)
10/07/24 16:49
10/07/24 16:49
Vital Signs
Initial and Last Documented VS:
Initial Vital Signs
Temp Pulse Resp BP Pulse Ox
36.8 C 76 16 152/90 100
10/07/24 16:40 10/07/24 16:40 10/07/24 16:40 10/07/24 16:40 10/07/24 16:40
Last Documented Vital Signs
Temp Pulse Resp BP Pulse Ox
36.8 C 76 16 152/90 100
10/07/24 16:40 10/07/24 16:40 10/07/24 16:40 10/07/24 16:40 10/07/24 16:40
<Collin Rachel, DO - Last Filed: 10/07/24 19:01>
Orders/Labs/Results
Orders:
Orders
10/07/24 16:39
Electrocardiogram (*1) Urgent
Reason for Study: Palpitations
EKG- Treatment ONCE
10/07/24 16:42
Electrocardiogram (*1) Urgent
Reason for Study: Palpitations
EKG- Treatment ONCE
10/07/24 16:49
Complete Blood Count/With Diff Urgent
Comprehensive Metabolic Panel Urgent
Magnesium Urgent
TSH Reflex To Free T4 Urgent
Troponin I Urgent
Abnormal Lab Results
10/07/24
16:49
MCH 31.2 H pg
(27.0-31.0)
Absolute Neuts (auto) 6.7 H 10^3/uL
(1.4-6.5)
Lymphocytes % 18.7 L %
(20.5-51.1)
ALT 55 H U/L
(0-50)
10/07/24 16:49
10/07/24 16:49
Vital Signs
Initial and Last Documented VS:
Initial Vital Signs
Temp Pulse Resp BP Pulse Ox
36.8 C 76 16 152/90 100
10/07/24 16:40 10/07/24 16:40 10/07/24 16:40 10/07/24 16:40 10/07/24 16:40
Last Documented Vital Signs
Temp Pulse Resp BP Pulse Ox
36.8 C 76 16 152/90 100
10/07/24 16:40 10/07/24 16:40 10/07/24 16:40 10/07/24 16:40 10/07/24 16:40
<Collin Rachel DO - Last Filed: 10/07/24 19:01>
*Critical Care Note
Total Time (30-74mins, 75-104mins- exclusive of procedures): Not Applicable
ED Attending Note
<Shital Doss PA-C - Last Filed: 10/07/24 16:43>
-
Portions of this chart may have been created with voice recognition software.� Occasional wrong word or��sound alike� substitutions may have occurred due to the inherent limitations of voice recognition software.
Discharge Plan
Departure
Patient Disposition: Home (Routine Discharge)
Date of Disposition: 10/07/24
Time of Disposition: 18:57
Patient with high blood pressure during this ER visit?: Yes
Discharge Problem:
Palpitations
Prescriptions:
No Action
Brilinta 90 mg Tablet
90 mg PO BID Qty: 60 11RF
atorvastatin 80 mg Tablet
80 mg PO QPM Qty: 30 11RF
losartan 25 mg Tablet
12.5 mg PO BID Qty: 60 11RF
aspirin [Children's Aspirin] 81 mg Tablet,Chewable
81 mg PO DAILY Qty: 1 0RF
metoprolol succinate 25 mg Tablet Extended Release 24 Hr
12.5 mg PO BID Qty: 60 11RF
Activity Restrictions/Additional Instructions:
Basic blood work as well as cardiac blood work (heart attack test called troponin) and thyroid testing are all normal. Recommend that you follow with your primary care doctor and consider following up with a cognitive behavioral therapist as well.
Your EKG shows a normal sinus rhythm.
Discharge Date and Time
Print Language: WELSH
[2024-10-07 17:00] LABS: % Basophils 0.5 % (0-2); % Eosinophils 1.5 % (0-6); % Immature Granulocytes 0.3 % (0-0.5); % Lymphocytes 18.7 % (20.5-51.1); % Monocytes 5.9 % (1.7-9.3); % Neutrophils 73.1 % (42.2-75.2); Absolute Basophils 0.1 10^3/uL (0-0.2); Absolute Eosinophils 0.1 10^3/uL (0-0.7); Absolute Lymphocytes 1.7 10^3/uL (1.2-3.4); Absolute Monocytes 0.5 10^3/uL (0.1-0.6); Absolute Neutrophils 6.7 10^3/uL (1.4-6.5); Hemoglobin 15.2 g/dL (13.0-18.0); Mean Corp Hgb Conc. 35.3 g/dL (33.0-37.0); Mean Corpuscular Hgb 31.2 pg (27.0-31.0); Mean Corpuscular Volume 88.3 fL (80.0-94.0); Mean Platelet Volume 8.7 fL (7.4-10.4); Nucleated Red Blood Cells % 0 % (-); Platelet Count 197 10^3/uL (130-400); Red Blood Cell Count 4.87 10^6/uL (4.70-6.10); White Blood Cell Count 9.2 10^3/uL (4.8-10.8)
[2024-10-07 17:14] LABS: ALT (SGPT) 55 U/L (0-50); AST (SGOT) 46 U/L (17-59); Alkaline Phosphatase 53 U/L (38-126); Blood Urea Nitrogen 18 mg/dl (9-20); Calcium 9.5 mg/dl (8.4-10.2); Carbon Dioxide 27 mmol/L (22-30); Chloride 102 mmol/L (98-107); Glucose 97 mg/dl (70-99); Potassium 4.2 mmol/L (3.5-5.1); Sodium 137 mmol/L (135-145); Total Bilirubin 0.9 mg/dl (0.2-1.3); Total Protein 7.6 g/dl (6.3-8.2); eGFR > 60.00
[2024-10-07 17:26] LABS: Troponin I < 0.012 ng/ml
[2024-10-07 17:46] LABS: TSH Reflex To Free T4 2.71 uIU/ml (0.47-4.68)
[2024-10-07 19:03] VITALS: BMI 26.2
[2024-10-07 19:04] VITALS: BP 111/65
== END 2024-10-07 19:23 | disposition home or self-care (01) ==
LOC: EMR 16:37
PROVIDERS: Physician Assistant; EMERGENCY PHYSICIAN Emergency Medicine; FAMILY PHYSICIAN Family Medicine
DX: R00.2 Palpitations (principal); R03.0 Elevated blood-pressure reading, without diagnosis of hypertension
CPT/HCPCS: 99284; 80053; 83735; 84443; 84484; 85025; 93005

== ENCOUNTER → 2025-08-26 07:12 | Outpatient (REF) | payer OTHER, SELFPAY | LOC: HWRCS 07:12 | PROVIDERS: ATTENDING PHYSICIAN Internal Medicine Interventional Cardiology; FAMILY PHYSICIAN Physician Assistant Medical | DX: I25.5 Ischemic cardiomyopathy (principal) | CPT/HCPCS: 93306 ==